=== PATIENT | male | born 1970 | race African-American/Black ===

== ENCOUNTER 2022-05-12 22:42 | Emergency (ER) | payer OTHER, BC ==
[2022-05-12 22:49] VITALS: BP 145/95; PULSE 60; RESP 18; TEMP 98.1; BMI 29.0
[2022-05-13] MEDS ORDERED: DIPHTH,PERTUSS(ACELL),TET 0.5 ML DISP.SYRIN IM ONE ×3 (00:18→00:30)
[2022-05-13] MEDS ORDERED: IBUPROFEN 600 MG TABLET (FP) PO ONE ×2 (01:12)
== END 2022-05-13 01:24 | disposition home or self-care (01) ==
LOC: JERFT 22:42
PROC: 0HQFXZZ Repair Right Hand Skin, External Approach (ICD-10-PCS; principal; 2022-05-12)
PROC: 3E0234Z Introduction of Serum, Toxoid and Vaccine into Muscle, Percutaneous Approach (ICD-10-PCS; 2022-05-12)
DX: S61.212A Laceration without foreign body of right middle finger without damage to nail, initial encounter (principal); W23.1XXA Caught, crushed, jammed, or pinched between stationary objects, initial encounter
CPT/HCPCS: 73130-TC-RT-FY; 90715; 99284-25